=== PATIENT | male | born 1950 | race Caucasian/White ===

== ENCOUNTER → 2016-12-18 | Outpatient (CLI) | payer BC ==
--- NOTE | 2016-12-18 11:52 | RAD ---
Chest, 2 views, 12/18/2016: History: Smoking history Comparison is made to a study from 09/19/2014. The heart size and pulmonary vascularity are normal. No pulmonary infiltrates are seen. There is no evidence of pleural fluid. IMPRESSION: No acute cardiopulmonary abnormality is detected.
== END | disposition home or self-care (01) ==
LOC: DXRADRC 11:04
PROVIDERS: ATTEND Physician Assistant
DX: Z87.891 Personal history of nicotine dependence (principal)
CPT/HCPCS: 71020

== ENCOUNTER → 2017-03-05 | Outpatient (CLI) | payer BC ==
--- NOTE | 2017-03-05 14:53 | RAD ---
Cervical spine, 5 views, 03/05/2017: History: Neck pain and stiffness, left arm pain There are is a mild cervical scoliosis. C6 and C7 were not clearly visualized in the lateral projection due to the high position of the patient's shoulders. There is moderate disc space narrowing and marginal spurring at C5-6 and C6-7. The spurring is causing foraminal stenosis at least on the right at these levels. The left neural foramina are not well visualized due to difficulties in patient positioning. There are mild degenerative changes involving multiple facet joints bilaterally. No fracture or dislocation is identified. The prevertebral soft tissues are unremarkable. IMPRESSION: Moderate multilevel degenerative change, particularly at the C5-6 and C6-7 disc levels as described above. MR scanning is suggested for further evaluation, if clinically indicated.
== END | disposition home or self-care (01) ==
LOC: DXRADRC 11:13
PROVIDERS: ATTEND Physician Assistant
DX: M48.02 Spinal stenosis, cervical region (principal); M79.602 Pain in left arm; M50.321 Other cervical disc degeneration at C4-C5 level; M50.322 Other cervical disc degeneration at C5-C6 level; M50.323 Other cervical disc degeneration at C6-C7 level
CPT/HCPCS: 72050

== ENCOUNTER → 2018-08-18 | Outpatient (CLI) | payer MEDICARE ==
--- NOTE | 2018-08-18 10:44 | RAD ---
EXAM: Left knee, 3 views. HISTORY: Pain and swelling. COMPARISON: None. FINDINGS: 3 views of the left knee are obtained. There is no fracture, dislocation or subluxation. There is a moderate joint effusion. IMPRESSION: 1. No acute osseous finding. 2. Moderate left knee effusion. Electronically signed by: Lorna Saxena MD (08/18/2018 10:41 AM) [id number]
== END | disposition home or self-care (01) ==
LOC: RAD 10:12
PROVIDERS: ATTEND Physician Assistant Medical
DX: M25.462 Effusion, left knee (principal)
CPT/HCPCS: 73562